=== PATIENT | female | born 1980 | race Caucasian/White ===

== ENCOUNTER → 2017-05-29 | Outpatient (CLI) | payer MEDICAID ==
[2017-05-30 08:19] LABS: ABSOLUTE EOSINOPHILS # (AUTO) 0.4 10^3/uL (0.0-0.6); ABSOLUTE LYMPHOCYTES (AUTO) 1.3 10^3/uL (0.5-4.7); ABSOLUTE MONOCYTES (AUTO) 0.4 10^3/uL (0.1-1.4); ABSOLUTE NEUT (AUTO) 4.1 10^3/uL (1.7-8.2); BASOPHILS % (AUTO) 0.7 % (0-2); EOSINOPHILS % (AUTO) 6.6 % (0-6); HEMATOCRIT 41.5 % (36.0-47.0); HEMOGLOBIN 13.5 g/dL (12.0-15.5); LYMPHOCYTES % (AUTO) 21.5 % (13-45); MEAN CORPUSCULAR HEMOGLOBIN 26.9 pg (27.0-33.4); MEAN CORPUSCULAR HGB CONC 32.5 g/dL (32.0-36.0); MEAN CORPUSCULAR VOLUME 83 fl (80-97); MONOCYTES % (AUTO) 5.9 % (3-13); RED BLOOD COUNT 5.02 10^6/uL (3.72-5.28); SEGMENTED NEUTROPHILS % (AUTO) 65.3 % (42-78); WHITE BLOOD COUNT 6.3 10^3/uL (4.0-10.5)
[2017-05-30 08:46] LABS: ALANINE AMINOTRANSFERASE 18 U/L (9-52); ALKALINE PHOSPHATASE 88 U/L (38-126); ANION GAP 11 (5-19); ASPARTATE AMINO TRANSFERASE 22 U/L (14-36); BILIRUBIN,DIRECT 0.3 mg/dL (0.0-0.4); BILIRUBIN,TOTAL 0.5 mg/dL (0.2-1.3); BLOOD UREA NITROGEN 27 mg/dL (7-20); CALCIUM 9.3 mg/dL (8.4-10.2); CARBON DIOXIDE 27 mmol/L (22-30); CHLORIDE 104 mmol/L (98-107); CHOLESTEROL 257.59 mg/dL (0-200); CREATININE RESULT 0.92 mg/dL (0.52-1.25); Direct HDL 52 mg/dL (>40); GLUCOSE 96 mg/dL (75-110); POTASSIUM 4.2 mmol/L (3.6-5.0); SODIUM 141.6 mmol/L (137-145); TOTAL PROTEIN 6.9 g/dL (6.3-8.2); TRIGLYCERIDES 85 mg/dL (<150)
[2017-05-30 09:00] LABS: DIRECT LDL 188 mg/dL (<100)
== END ==
LOC: OD 11:16
PROVIDERS: ATTEND Family Medicine
DX: G43.109 Migraine with aura, not intractable, without status migrainosus (principal); Q61.3 Polycystic kidney, unspecified; R89.4 Abnormal immunological findings in specimens from other organs, systems and tissues
CPT/HCPCS: 36415; 80053; 80061; 84443; 85025

== ENCOUNTER 2017-11-10 17:35 | Emergency (ER) | payer OTHER ==
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
[2017-11-10] MEDS ORDERED: OXYCODONE-ACETAMINOPHEN 5-325 MG TABLET PO ONE (21:27)
[2017-11-10 22:01] VITALS: BP 129/75
== END 2017-11-10 21:50 | disposition home or self-care (01) ==
LOC: ER 17:35
DX: G43.909 Migraine, unspecified, not intractable, without status migrainosus (principal); M62.830 Muscle spasm of back; Z90.710 Acquired absence of both cervix and uterus; Z88.6 Allergy status to analgesic agent
CPT/HCPCS: 72040; 72100; 99283

== ENCOUNTER 2018-02-25 17:00 | Emergency (ER) | payer OTHER ==
[2018-02-25] MEDS ORDERED: PENICILLIN G BENZATHINE 1.2 MILLION UNIT/2 ML DISP.SYRIN IM ONE (19:09)
[2018-02-25] MEDS ORDERED: DEXAMETHASONE 4 MG TABLET PO ONE (19:09)
--- NOTE | 2018-02-25 19:11 | ER Document Report ---
HPI - HPI Patient complains to provider of: Sore throat Onset: Yesterday Onset/Duration: Gradual Quality of pain: Achy Pain Level: 3 Context: Patient presents complaining of sore throat, body aches that started yesterday. Patient states his typical symptoms and presentation when she has strep and she suspects the same today. Associated Symptoms: Body/muscle aches, Sore throat. denies: Earache, Fever Exacerbated by: Denies Relieved by: Denies Similar symptoms previously: Yes Recently seen / treated by doctor: No - ROS ROS below otherwise negative: Yes Systems Reviewed and Negative: Yes All other systems reviewed and negative - EENT EENT: REPORTS: Sore Throat - RESPIRATORY Respiratory: DENIES: Coughing - GASTROINTESTINAL Gastrointestinal: DENIES: Nausea, Patient vomiting - REPRODUCTIVE Reproductive: DENIES: : - DERM Skin Color: Normal Skin Problems: None Past Medical History - General Information source: Patient - Social History Smoking Status: Never Smoker Frequency of alcohol use: None Drug Abuse: None Occupation: Childcare Lives with: Family Family History: Reviewed & Not Pertinent Patient has suicidal ideation: No Patient has homicidal ideation: No Neurological Medical History: Reports: Hx Migraine Renal/ Medical History: Reports: Other - Polycystic kidneys. Denies: Hx Peritoneal Dialysis. Comment Only: Hx Kidney Stones - polycystic kidneys GI Medical History: Reports: Hx Gastroesophageal Reflux Disease Past Surgical History: Reports: Hx Hysterectomy - Immunizations Hx Diphtheria, Pertussis, Tetanus Vaccination: Yes Vertical Provider Document - CONSTITUTIONAL Agree With Documented VS: Yes Exam Limitations: No Limitations General Appearance: WD/WN, No Apparent Distress - INFECTION CONTROL TRAVEL OUTSIDE OF THE [place] IN LAST 30 DAYS: No - HEENT HEENT: Atraumatic, Normocephalic, Pharyngeal Exudate, Pharyngeal Tenderness, Pharyngeal Erythema. negative: Tympanic Membrane Red, Tympanic Membrane Bulging - NECK Neck: Lymphadenopathy-Left, Lymphadenopathy-Right - RESPIRATORY Respiratory: Breath Sounds Normal, No Respiratory Distress, Chest Non-Tender - CARDIOVASCULAR Cardiovascular: Regular Rate, Regular Rhythm, No Murmur - BACK Back: Normal Inspection - MUSCULOSKELETAL/EXTREMETIES Musculoskeletal/Extremeties: MAEW - NEURO Level of Consciousness: Awake, Alert, Appropriate Motor/Sensory: No Motor Deficit - DERM Integumentary: Warm, Dry, No Rash Course - Re-evaluation Re-evalutation: 02/25/18 19:09 Patient presents with symptoms concerning for exudative tonsillitis. No concern for peritonsillar abscess, no potential airway compromise. Discussed worsening symptoms that patient should return immediately for. - Vital Signs Vital signs: Temp Pulse Resp BP Pulse Ox 98.7 F 91 14 128/74 H 98 02/25/18 17:25 02/25/18 17:25 02/25/18 17:25 02/25/18 17:25 02/25/18 17:25 Discharge - Discharge Clinical Impression: Tonsillitis Condition: Stable Disposition: HOME, SELF-CARE Instructions: Corticosteroid Medication ([facility]), Use of Cray-Wwh-Pslssam Ibuprofen ([facility]), Tonsillitis ([facility]) Additional Instructions: Return immediately for any new or worsening symptoms Followup with your primary care provider, call tomorrow to make a followup appointment Prescriptions: Naproxen [Naprosyn 250 Nmg Tablet] 1 tab PO BID #14 tablet Forms: Return to Work Referrals: [facility] [Provider Group] - Follow up as needed
[2018-02-25 19:39] VITALS: BP 123/86
== END 2018-02-25 19:39 | disposition home or self-care (01) ==
LOC: ER 17:00
DX: J03.90 Acute tonsillitis, unspecified (principal); M79.1 Myalgia
CPT/HCPCS: 99282; 96372; J0561

== ENCOUNTER 2018-06-08 11:33 | Emergency (ER) | payer SELFPAY ==
--- NOTE | 2018-06-08 11:41 | ER Document Report ---
HPI - HPI Patient complains to provider of: Pain left calf Onset: Other - 3 weeks Onset/Duration: Worse Pain Level: 1 Context: 38-year-old female complaining of left calf pain with bruising without injury and I am not. She has been watching it for 3 weeks it gets more painful when she walks and very tight. She also has noticed some enlarged engorged veins in that lower leg which she has never had before. No prolonged travel. No history of DVT or PE. No chest pain or shortness of breath. 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 - REPRODUCTIVE Reproductive: DENIES: : Past Medical History - General Information source: Patient - Social History Smoking Status: Never Smoker Frequency of alcohol use: None Drug Abuse: None Lives with: Family Family History: Reviewed & Not Pertinent Neurological Medical History: Reports: Hx Migraine Renal/ Medical History: Denies: Hx Peritoneal Dialysis. Comment Only: Hx Kidney Stones - polycystic kidneys GI Medical History: Reports: Hx Gastroesophageal Reflux Disease Past Surgical History: Reports: Hx Hysterectomy - Immunizations Hx Diphtheria, Pertussis, Tetanus Vaccination: Yes Vertical Provider Document - CONSTITUTIONAL Agree With Documented VS: Yes Exam Limitations: No Limitations - INFECTION CONTROL TRAVEL OUTSIDE OF THE [place] IN LAST 30 DAYS: No - MUSCULOSKELETAL/EXTREMETIES Musculoskeletal/Extremeties: MAEW, FROM, Tender, Eccymosis - mid medial left lower posterior leg, 4 cm stellate Which is fading to yellow in the center where there is a subq firm mass tender, veins of left lower leg more pronounced than the right lower leg. negative: Edema Notes: 2+ dp and femoral pulses - NEURO Level of Consciousness: Alert - DERM Integumentary: No Rash Course - Re-evaluation Re-evalutation: 06/08/18 Venous Doppler ultrasound negative per Dr. Quigley Discharge - Discharge Clinical Impression: left calf ecchymosis Condition: Good Disposition: HOME, SELF-CARE Instructions: Acetaminophen, Ibuprofen (General) ([facility]), Warm Packs ([facility]) Additional Instructions: warm compress See your doctor for follow-up You may be developing varicose veins the brusing should resolve in the next week Prescriptions: Ibuprofen [Motrin 800 mg Tablet] 800 mg PO Q8HP PRN #30 tablet PRN Reason: Forms: Return to Work
[2018-06-08 11:45] VITALS: BP 126/96
--- NOTE | 2018-06-09 07:49 | XCELERA REPORT ---
[address] [address] Lower Extremity Venous Evaluation Name: BYRON BROOKS Age: 38 yrs Gender: Female : 1980 Patient Status: Emergency Patient Location: ER Study Date: 06/08/2018 01:33 PM Procedure: Color flow and duplex imaging of the veins of the left lower extremity as well as the right Common Femoral vein. Reason For Study: swelling left leg Ordering Physician: SHAWN VAZQUEZ Performed By: [facility] Right Sided Venous Evaluation The right common femoral vein is fully compressible. Spontaneous and phasic flow is present in the right common femoral vein. Left Sided Venous Evaluation Normal vessel filling wall to wall, compression and augmentation as well as Colour flow down to the infrageniculate veins. Critical Findings Called in to the ER at about 1500. Interpretation Summary No duplex evidence of DVT or obstruction in the left lower extremity nor in the right Common Femoral vein. : SHAWN VAZQUEZ > Juan J Quigley
== END 2018-06-08 15:17 | disposition home or self-care (01) ==
LOC: ER 11:33
DX: R58 Hemorrhage, not elsewhere classified (principal); M79.605 Pain in left leg
CPT/HCPCS: 93971; 99284

== ENCOUNTER 2018-06-26 16:44 | Emergency (ER) | payer SELFPAY ==
[2018-06-26 16:49] VITALS: BP 139/91
[2018-06-26] MEDS ORDERED: METHYLPREDNISOLONE ACETATE INJ 80 MG/1 ML VIAL IM ONE (17:21)
[2018-06-26] MEDS ORDERED: BUPIVACAINE HCL 0.75% INJ/PF (7.5 MG/1 ML) 10 ML SDV INJ ONE (17:21)
[2018-06-26] MEDS ORDERED: PROCHLORPERAZINE MALEATE 10 MG TABLET PO ONE (17:36)
[2018-06-26] MEDS ORDERED: KETOROLAC TROMETHAMINE 60 MG/2 ML SDV IM ONE (17:36)
--- NOTE | 2018-06-26 17:40 | ER Document Report ---
ED Medical Screen (RME) - General TRAVEL OUTSIDE OF THE [place] IN LAST 30 DAYS: No - General Chief Complaint: Headache Stated Complaint: HEADACHE Time Seen by Provider: 06/26/18 17:15 Notes: 38 years old female who presents today with migraine type of headache for the last 3 days. In spite of taking her regular medications still having the headache. Described as frontal headache in her left neck region. Exacerbated by movement. No nausea vomiting. Has taken Dexedrine as well as Maxalt without help. She was given a trigger point injection on the left upper neck claims that did not help fully. ([place]) - Related Data Allergies/Adverse Reactions: acetaminophen [From Vicodin] Allergy (Verified 06/26/18 19:11) hydrocodone bitartrate [From Vicodin] Allergy (Verified 06/26/18 19:11) morphine [Morphine] Adverse Reaction (Verified 06/26/18 19:11) Past Medical History - Social History Chew tobacco use (# tins/day): No Frequency of alcohol use: None Drug Abuse: None Neurological Medical History: Reports: Hx Migraine Renal/ Medical History: Denies: Hx Peritoneal Dialysis. Comment Only: Hx Kidney Stones - polycystic kidneys GI Medical History: Reports: Hx Gastroesophageal Reflux Disease Past Surgical History: Reports: Hx Hysterectomy - Immunizations Hx Diphtheria, Pertussis, Tetanus Vaccination: Yes - Vital signs Vitals: Temp Pulse Resp BP Pulse Ox 98.6 F 76 16 139/91 H 95 06/26/18 16:48 06/26/18 16:48 06/26/18 16:48 06/26/18 16:48 06/26/18 16:48 - Vital Signs Vital signs: Temp Pulse Resp BP Pulse Ox 98.6 F 76 16 139/91 H 95 06/26/18 16:48 06/26/18 16:48 06/26/18 16:48 06/26/18 16:48 06/26/18 16:48 Procedures - Additional Procedures Trigger point Time performed: 17:40 Additional Procedures: Other - Additional Procedures Trigger point Notes: 06/26/18 17:40 Trigger point injection was given in the left upper cervical muscles under aseptic condition using sterile technique with 60 mg of, Depo-Medrol and 3 cc of Marcaine. Without any complications. ([place]) Doctor's Discharge - Discharge Clinical Impression: Migraine Qualifiers: Migraine type: unspecified Status migrainosus presence: without status migrainosus Intractability: not intractable Qualified Code(s): G43.909 - Migraine, unspecified, not intractable, without status migrainosus Condition: Stable Disposition: HOME, SELF-CARE Instructions: Migraine Headache ([facility]) Additional Instructions: Follow up with your physician tomorrow for further care or return to the ED IMMEDIATELY if symptoms worsen or new concerns occur. If you cannot afford to follow up with your primary care physician a list of low cost clinics have been provided at the end of your discharge papers as well. Forms: Return to Work
[2018-06-26] MEDS ORDERED: HALOPERIDOL 5 MG TABLET PO ONE (19:38)
[2018-06-26] MEDS ORDERED: DIPHENHYDRAMINE HCL 50 MG CAPSULE PO ONE (19:38)
--- NOTE | 2018-06-26 19:42 | ER Document Report ---
ED General - General Chief Complaint: Headache Stated Complaint: HEADACHE Time Seen by Provider: 06/26/18 17:15 Mode of Arrival: Ambulatory Information source: Patient Notes: 38-year-old female history of chronic migraines presents with complaints of migraine 3 day duration associated with nausea and vomiting. Patient notes she vomited on the first day since then has just been nauseous. She denies any fevers or chills notes this is similar to all her previous migraines. Denies any neurological deficits notes she has had an injection points in the past with some relief TRAVEL OUTSIDE OF THE [place] IN LAST 30 DAYS: No - HPI Onset: Other Onset/Duration: Persistent Quality of pain: Achy Severity: Mild Pain Level: 1 Associated symptoms: Headache, Nausea, Vomiting Exacerbated by: Denies Relieved by: Denies Similar symptoms previously: Yes Recently seen / treated by doctor: Yes - Related Data Allergies/Adverse Reactions: acetaminophen [From Vicodin] Allergy (Verified 06/26/18 19:11) hydrocodone bitartrate [From Vicodin] Allergy (Verified 06/26/18 19:11) morphine [Morphine] Adverse Reaction (Verified 06/26/18 19:11) Past Medical History - Social History Smoking Status: Never Smoker Cigarette use (# per day): No Chew tobacco use (# tins/day): No Smoking Education Provided: No Frequency of alcohol use: None Drug Abuse: None Family History: Reviewed & Not Pertinent Patient has suicidal ideation: No Patient has homicidal ideation: No Neurological Medical History: Reports: Hx Migraine Renal/ Medical History: Denies: Hx Peritoneal Dialysis. Comment Only: Hx Kidney Stones - polycystic kidneys GI Medical History: Reports: Hx Gastroesophageal Reflux Disease Past Surgical History: Reports: Hx Hysterectomy - Immunizations Hx Diphtheria, Pertussis, Tetanus Vaccination: Yes Review of Systems - Review of Systems Notes: REVIEW OF SYSTEMS: CONSTITUTIONAL : Denies fever, chills, or sweats. Denies recent illness. EENT: Denies eye, ear, throat, or mouth pain or symptoms. Denies nasal or sinus congestion or discharge. Denies throat, tongue, or mouth swelling or difficulty swallowing. CARDIOVASCULAR: Denies chest pain. Denies palpitations or racing or irregular heart beat. Denies ankle edema. RESPIRATORY: Denies cough, cold, or chest congestion. Denies shortness of breath, difficulty breathing, or wheezing. GASTROINTESTINAL: Admits nausea vomiting GENITOURINARY: Denies difficulty urinating, painful urination, burning, frequency, blood in urine, or discharge. FEMALE GENITOURINARY: Denies vaginal bleeding, heavy or abnormal periods, irregular periods. Denies vaginal discharge or odor. MUSCULOSKELETAL: Denies back or neck pain or stiffness. Denies joint pain or swelling. SKIN: Denies rash, lesions or sores. HEMATOLOGIC : Denies easy bruising or bleeding. LYMPHATIC: Denies swollen, enlarged glands. NEUROLOGICAL: Admits to headache PSYCHIATRIC: Denies anxiety or stress. Denies depression, suicidal ideation, or homicidal ideation. ALL OTHER SYSTEMS REVIEWED AND NEGATIVE. PHYSICAL EXAMINATION: GENERAL: Well-appearing, well-nourished and in no acute distress. HEAD: Atraumatic, normocephalic. EYES: Pupils equal round and reactive to light, extraocular movements intact, conjunctiva are normal. ENT: Nares patent, oropharynx clear without exudates. Moist mucous membranes. NECK: Normal range of motion, supple without lymphadenopathy LUNGS: Breath sounds clear to auscultation bilaterally and equal. No wheezes rales or rhonchi. HEART: Regular rate and rhythm without murmurs ABDOMEN: Soft, nontender, nondistended abdomen. No guarding, no rebound. No masses appreciated. Female : deferred Musculoskeletal: Normal range of motion, no pitting or edema. No cyanosis. NEUROLOGICAL: Cranial nerves grossly intact. Normal speech, normal gait. Normal sensory, motor exams PSYCH: Normal mood, normal affect. SKIN: Warm, Dry, normal turgor, no rashes or lesions noted. Dictation was performed using [employer] voice recognition software Physical Exam - Vital signs Vitals: Temp Pulse Resp BP Pulse Ox 98.6 F 76 16 139/91 H 95 06/26/18 16:48 06/26/18 16:48 06/26/18 16:48 06/26/18 16:48 06/26/18 16:48 Course - Re-evaluation Re-evalutation: 06/26/18 19:42 Patient's presentation most consistent with chronic migraine exacerbation, she will be treated symptomatically, she has already received injection of Sensorcaine by the triage physician 06/26/18 21:05 Patient states that her migraines a little better, however she believes that we are treating her as if she only has a minor headache yet she is received 6 separate medications, I explained to the patient that we would not be giving these medications if we are concerned that this was just a minor headache, the patient states she just wants to leave, at her request I will discharge her. Patient is insisting that she received 4 medications yet when I explained each one that was given to her she acknowledges that she has received them patient has been treated with multiple medications for migraine cocktails, she requests work note and I will provide this for her as well she has no life-threatening issues she looks well vital signs are stable and she is stable for discharge After performing a Medical Screening Examination, I estimate there is LOW risk for ACUTE GLAUCOMA, TEMPORAL ARTERITIS, MENINGITIS, INCRANIAL HEMORRHAGE, or ISCHEMIC STROKE thus I consider the discharge disposition reasonable. I have reevaluated this patient multiple times and no significant life threatening changes are noted. The patient and I have discussed the diagnosis and risks, and we agree with discharging home with close follow-up with the understanding that symptoms and presentations can change. We also discussed returning to the Emergency Department immediately if new or worsening symptoms occur. We have discussed the symptoms which are most concerning (e.g., changing or worsening symptoms, new numbness or weakness, vomiting, fever) that necessitate immediate return. 06/26/18 21:07 - Vital Signs Vital signs: Temp Pulse Resp BP Pulse Ox 98.6 F 76 16 139/91 H 95 06/26/18 16:48 06/26/18 16:48 06/26/18 16:48 06/26/18 16:48 06/26/18 16:48 Discharge - Discharge Clinical Impression: Migraine Qualifiers: Migraine type: unspecified Status migrainosus presence: without status migrainosus Intractability: not intractable Qualified Code(s): G43.909 - Migraine, unspecified, not intractable, without status migrainosus Condition: Stable Disposition: HOME, SELF-CARE Instructions: Migraine Headache ([facility]) Additional Instructions: Follow up with your physician tomorrow for further care or return to the ED IMMEDIATELY if symptoms worsen or new concerns occur. If you cannot afford to follow up with your primary care physician a list of low cost clinics have been provided at the end of your discharge papers as well.
== END 2018-06-26 21:25 | disposition home or self-care (01) ==
LOC: ER 16:44
DX: G43.909 Migraine, unspecified, not intractable, without status migrainosus (principal); R11.2 Nausea with vomiting, unspecified; Z88.6 Allergy status to analgesic agent; Z88.5 Allergy status to narcotic agent
CPT/HCPCS: 99283; 96372; J1885; S0183

== ENCOUNTER 2019-07-06 16:01 | Emergency (ER) | payer SELFPAY ==
[2019-07-06 16:14] VITALS: BP 135/84
[2019-07-06] MEDS ORDERED: LIDOCAINE 5% (700 MG) TRANSDERMAL ADH..PATCH TP ONE (16:23)
[2019-07-06] MEDS ORDERED: DEXAMETHASONE SOD PHOS INJ 10 MG/1 ML VIAL IM ONE (16:23)
--- NOTE | 2019-07-06 16:27 | ER Document Report ---
HPI - HPI Time Seen by Provider: 07/06/19 16:18 Pain Level: 5 Notes: Patient is a 39-year-old female with a history of chronic low back pain who presents complaining of acute on chronic left low back pain that radiates to the lateral side of her leg. Patient describes it as more of a dullness. 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 She still able to ambulate without difficulty otherwise. She is eating and drinking without difficulty. She is urinating normally and having normal bowel movements. Patient tried conservative measures at home with no relief. She does have a history of polycystic kidney disease and cannot take NSAIDs as well. She has not had any history of IV drug abuse, diabetes, or spinal abscess. Denies any headache, fever, URI, sore throat, chest pain, palpitations, syncope, cough, shortness of breath, wheeze, dyspnea, abdominal pain, nausea/vomiting/diarrhea, urinary retention, dysuria, hematuria, loss of control of bowel or bladder, numbness/tingling, saddle anesthesia, muscle paralysis/weakness, or rash. - ROS Systems Reviewed and Negative: Yes All other systems reviewed and negative - REPRODUCTIVE Reproductive: DENIES: : Past Medical History - Social History Smoking Status: Never Smoker Family History: Reviewed & Not Pertinent Neurological Medical History: Reports: Hx Migraine Renal/ Medical History: Denies: Hx Peritoneal Dialysis. Comment Only: Hx Kidney Stones - polycystic kidneys GI Medical History: Reports: Hx Gastroesophageal Reflux Disease Past Surgical History: Reports: Hx Hysterectomy - Immunizations Hx Diphtheria, Pertussis, Tetanus Vaccination: Yes Vertical Provider Document - CONSTITUTIONAL Agree With Documented VS: Yes Notes: PHYSICAL EXAMINATION: GENERAL: Well-appearing, well-nourished and in no acute distress. LUNGS: Breath sounds clear to auscultation bilaterally and equal. No wheezes rales or rhonchi. HEART: Regular rate and rhythm without murmurs, rubs, gallops. ABDOMEN: Soft, nontender, nondistended abdomen. No guarding, no rebound. Normal bowel sounds present. No CVA tenderness bilaterally. No pulsatile mass Musculoskeletal: LE's b/l: FROM to passive/active. Strength 5+/5. No deficits noted. No bony tenderness of extremities. Back: FROM to passive/active. Strength 5+/5. No vertebral point tenderness, stepoffs, or deformities. No other bony tenderness, erythema, swelling, or ecchymosis. SLR negative b/l. + Reproducible tenderness to the left L- paraspinal mm. Mild spasming. No SI jt tenderness. No foot drop Extremities: No cyanosis, clubbing, or edema b/l. Peripheral pulses 2+. Capillary refill less than 2 seconds. NEUROLOGICAL: Normal speech, normal gait. Normal sensory, motor exams. Reflexes 2+ b/l. PSYCH: Normal mood, normal affect. SKIN: Warm, Dry, normal turgor, no rashes or lesions noted. - INFECTION CONTROL TRAVEL OUTSIDE OF THE [place] IN LAST 30 DAYS: No Course - Re-evaluation Re-evalutation: 07/06/19 16:25 Patient is an afebrile, well-hydrated, 39-year-old female who presents to the ED with acute on chronic low back pain. Vitals are acceptable. PE is otherwise unremarkable for any focal neurological deficits. Patient was given Decadron and Lidoderm patch. She has no significant tachycardia, tachypnea, or hypoxia. She is nontoxic-appearing and is tolerating p.o. without difficulties. There are no signs of infection. No other red flag symptoms noted. No other labs or imaging warranted at this time based on H&P. Low suspicion for any meningitis, fracture, expanding/ruptured AAA, cauda equina syndrome, epidural mass lesion/abscess, herniated disc causing severe spinal stenosis, or other systemic infection at this time. Patient is aware that his condition can change from initial presentation and that he needs monitor symptoms closely for any acute changes. I will send her home with a prescription for Robaxin and Lidoderm patches. Conservative measures otherwise for symptoms. Recheck with your PCM in 3-5 days. Consider consult with orthopedic/physical therapy. Return to the ED with any worsening/concerning symptoms otherwise as reviewed discharge. Patient is in agreement. - Vital Signs Vital signs: Temp Pulse Resp BP Pulse Ox 98.4 F 70 16 135/84 H 98 07/06/19 16:13 07/06/19 16:13 07/06/19 16:13 07/06/19 16:13 07/06/19 16:13 Discharge - Discharge Clinical Impression: Low back pain radiating to left leg Condition: Stable Disposition: HOME, SELF-CARE Instructions: Low Back Pain ([facility]), Muscle Relaxers ([facility]) Additional Instructions: Rest, Ice Tylenol/ibuprofen as needed Light stretches daily Strength exercises as able Moist heat and massage may help F/u with your PCP in 3-5 days for a recheck Consider consult(s) with Orthopedics/physical therapy for ongoing/worsening symptoms Return to the ED with any worsening symptoms and/or development of fever, headache, chest pain, palpitations, syncope, shortness of breath, trouble breathing, abdominal pain, n/v/d, blood in stool/urine, loss of control of bowel/bladder, urinary retention, muscle weakness/paralysis, saddle anesthesia, numbness/tingling, or other worsening symptoms that are concerning to you. Prescriptions: Lidocaine [Lidoderm 5% (700 mg) Transdermal Patch] 1 patch TP DAILY #10 adh.. patch Methocarbamol [Robaxin] 500 mg PO TID PRN #12 tablet PRN Reason: Forms: Elevated Blood Pressure Referrals: [facility] [Provider Group] - Follow up as needed
== END 2019-07-06 16:40 | disposition home or self-care (01) ==
LOC: ER 16:01
DX: M54.5 Low back pain (principal); G89.29 Other chronic pain; R25.2 Cramp and spasm
CPT/HCPCS: 99283; 96374; J1100

== ENCOUNTER 2019-08-07 12:44 | Emergency (ER) | payer SELFPAY ==
[2019-08-07 12:52] VITALS: BP 127/86
== END 2019-08-07 14:25 | disposition left against medical advice (07) ==
LOC: ER 12:44
DX: Z53.21 Procedure and treatment not carried out due to patient leaving prior to being seen by health care provider (principal)

== ENCOUNTER 2020-02-22 10:45 | Emergency (ER) | payer SELFPAY ==
--- NOTE | 2020-02-22 10:58 | ER Document Report ---
HPI - HPI Time Seen by Provider: 02/22/20 10:53 Pain Level: Denies Context: Patient is a 39-year-old female who presents emergency department with a chief complaint of dark urine and urinary frequency. Patient states that she has history of kidney disease. Her symptoms started 2 days ago. Denies any dysuria. Patient was recently started on amoxicillin for strep pharyngitis. Denies any abdominal pain or back pain. - ROS Systems Reviewed and Negative: Yes All other systems reviewed and negative - CONSTITUTIONAL Constitutional: DENIES: Fever, Chills - URINARY Urinary: REPORTS: Urgency, Frequency - REPRODUCTIVE Reproductive: DENIES: : - MUSCULOSKELETAL Musculoskeletal: DENIES: Extremity pain Past Medical History - Social History Smoking Status: Never Smoker Frequency of alcohol use: None Drug Abuse: None Family History: Reviewed & Not Pertinent Patient has suicidal ideation: No Patient has homicidal ideation: No Neurological Medical History: Reports: Hx Migraine Renal/ Medical History: Denies: Hx Peritoneal Dialysis. Comment Only: Hx Kidney Stones - polycystic kidneys GI Medical History: Reports: Hx Gastroesophageal Reflux Disease Past Surgical History: Reports: Hx Hysterectomy - Immunizations Hx Diphtheria, Pertussis, Tetanus Vaccination: Yes Vertical Provider Document - CONSTITUTIONAL Agree With Documented VS: Yes Exam Limitations: No Limitations General Appearance: No Apparent Distress - INFECTION CONTROL TRAVEL OUTSIDE OF THE [place] IN LAST 30 DAYS: No - HEENT HEENT: Atraumatic, Normocephalic, PERRLA - NECK Neck: Normal Inspection - RESPIRATORY Respiratory: No Respiratory Distress - CARDIOVASCULAR Cardiovascular: Regular Rate, Regular Rhythm Pulses: Normal: Radial - GI/ABDOMEN Gastrointestinal: Abdomen Soft, Abdomen Non-Tender - BACK Back: negative: CVA Tenderness-Right, CVA Tenderness-Left - MUSCULOSKELETAL/EXTREMETIES Musculoskeletal/Extremeties: FROM - NEURO Level of Consciousness: Awake, Alert, Appropriate Motor/Sensory: No Motor Deficit, No Sensory Deficit - DERM Integumentary: Warm, Dry, No Rash Course - Re-evaluation Re-evalutation: 02/22/20 11:41 Urinalysis unremarkable. No leukocytes noted. Urine will be sent for culture. Patient will continue her amoxicillin. I have a very low suspicion for pyelonephritis, kidney stone, or any life-threatening etiology at this time. Follow-up precautions were given. Verbal discharge instructions were given to the patient. They verbalized understanding. They are stable for discharge. - Vital Signs Vital signs: Temp Pulse Resp BP Pulse Ox 98.1 F 72 14 155/93 H 98 02/22/20 10:48 02/22/20 10:48 02/22/20 10:48 02/22/20 10:48 02/22/20 10:48 Discharge - Discharge Clinical Impression: Urinary frequency, Urinary urgency Condition: Stable Disposition: HOME, SELF-CARE Additional Instructions: You were seen today in the emergency department for dark urine. Your urinalysis is normal. Your urine will be sent for culture since you are having symptoms. Please follow-up with 1 of the clinics below. Continue your amoxicillin. Forms: Return to Work Referrals: [facility] [Provider Group] - Follow up as needed [facility] [Provider Group] - Follow up as needed
[2020-02-22 11:25] LABS: APPEARANCE,URINE CLEAR; BILIRUBIN,URINE NEGATIVE (NEGATIVE); COLOR,URINE YELLOW; GLUCOSE, URINE NEGATIVE (NEGATIVE); KETONES,URINE NEGATIVE (NEGATIVE); LEUKOCYTE ESTERASE,URINE NEGATIVE (NEGATIVE); NITRITE,URINE NEGATIVE (NEGATIVE); PROTEIN,URINE NEGATIVE (NEGATIVE); URINE SPECIFIC GRAVITY 1.013; UROBILINOGEN,URINE NEGATIVE mg/dL (<2.0)
[2020-02-22 11:46] VITALS: BP 131/92
== END 2020-02-22 11:52 | disposition home or self-care (01) ==
LOC: ER 10:45
DX: R35.0 Frequency of micturition (principal); R39.15 Urgency of urination; R39.198 Other difficulties with micturition
CPT/HCPCS: 81001; 87086; 99283

== ENCOUNTER 2020-08-22 22:43 | Emergency (ER) | payer OTHER ==
[2020-08-22] MEDS ORDERED: IBUPROFEN 600 MG TABLET PO ONE (23:04)
[2020-08-22] MEDS ORDERED: OXYCODONE-ACETAMINOPHEN 5-325 MG TABLET PO ONE (23:04)
--- NOTE | 2020-08-22 23:07 | ER Document Report ---
ED Medical Screen (RME) - General Stated Complaint: RIGHT HAND INJURY Time Seen by Provider: 08/22/20 23:03 Mode of Arrival: Ambulatory Information source: Patient Notes: 40-year-old female accidentally stabbed her right palm with a pair of scissors. She states that the cut goes pretty deep. Feeling tingling in her fingers. Last tetanus is unknown. Physical exam General: Uncomfortable Musculoskeletal 2-1/2 cm laceration to the right palm I have greeted and performed a rapid initial assessment of this patient. A comprehensive ED assessment and evaluation of the patient, analysis of test results and completion of the medical decision making process will be conducted by additional ED providers. TRAVEL OUTSIDE OF THE [place] IN LAST 30 DAYS: No - Related Data Allergies/Adverse Reactions: acetaminophen [From Vicodin] Allergy (Verified 06/26/18 19:11) hydrocodone bitartrate [From Vicodin] Allergy (Verified 06/26/18 19:11) morphine [Morphine] Adverse Reaction (Verified 06/26/18 19:11) Past Medical History Neurological Medical History: Reports: Hx Migraine Renal/ Medical History: Denies: Hx Peritoneal Dialysis. Comment Only: Hx Kidney Stones - polycystic kidneys GI Medical History: Reports: Hx Gastroesophageal Reflux Disease Past Surgical History: Reports: Hx Hysterectomy - Immunizations Hx Diphtheria, Pertussis, Tetanus Vaccination: Yes
--- NOTE | 2020-08-22 23:45 | RADIOLOGY REPORT (SQ) ---
CLINICAL INDICATION: stabbed to palm by scissors. . TECHNIQUE: 3 view(s) were obtained of the right hand. COMPARISON: None. FINDINGS: No acute displaced fracture is identified of the hand. Alignment appears anatomic. Joint spaces are within normal limits for age. Surrounding soft tissues are unremarkable. No retained radiopaque foreign body. IMPRESSION: No evidence of acute bony injury to the hand.
[2020-08-23] MEDS ORDERED: DIPH/PERTUSS(ACELL)/TETANUS VAC/PF 0.5 ML SYR (>=10YO) IM ONE (02:18)
[2020-08-23] MEDS ORDERED: LIDOCAINE 1% INJ (10 MG/ML) 10 ML MDV INJ ONE (02:18)
--- NOTE | 2020-08-23 02:47 | ER Document Report ---
ED General - General Chief Complaint: Puncture Wound Stated Complaint: RIGHT HAND INJURY Time Seen by Provider: 08/22/20 23:03 Mode of Arrival: Ambulatory TRAVEL OUTSIDE OF THE [place] IN LAST 30 DAYS: No - HPI Onset: Just prior to arrival Onset/Duration: Sudden Quality of pain: Achy Severity: Mild Pain Level: 2 Context: 40 year old female at work a short time ago accidently stabbed right hand with a scissors and can not get the bleeding to stop. Unsure last tetanus. Healthy female that is right hand dominant. Exacerbated by: Movement Relieved by: Denies - Related Data Allergies/Adverse Reactions: acetaminophen [From Vicodin] Allergy (Verified 06/26/18 19:11) hydrocodone bitartrate [From Vicodin] Allergy (Verified 06/26/18 19:11) morphine [Morphine] Adverse Reaction (Verified 06/26/18 19:11) Past Medical History - General Information source: Patient - Social History Smoking Status: Never Smoker Chew tobacco use (# tins/day): No Frequency of alcohol use: None Drug Abuse: None Family History: Reviewed & Not Pertinent Patient has homicidal ideation: No Neurological Medical History: Reports: Hx Migraine Renal/ Medical History: Denies: Hx Peritoneal Dialysis. Comment Only: Hx Kidney Stones - polycystic kidneys GI Medical History: Reports: Hx Gastroesophageal Reflux Disease Past Surgical History: Reports: Hx Hysterectomy - Immunizations Hx Diphtheria, Pertussis, Tetanus Vaccination: Yes Review of Systems - Review of Systems Constitutional: No symptoms reported EENT: No symptoms reported Cardiovascular: No symptoms reported Respiratory: No symptoms reported Gastrointestinal: No symptoms reported Genitourinary: No symptoms reported Female Genitourinary: No symptoms reported Musculoskeletal: No symptoms reported Skin: See HPI, Other - laceration right hand Hematologic/Lymphatic: No symptoms reported Neurological/Psychological: No symptoms reported Physical Exam - Vital signs Vitals: Temp 98.2 F 08/22/20 22:59 Interpretation: Normal - General General appearance: Appears well, Alert - HEENT Head: Normocephalic, Atraumatic Eyes: Normal - Respiratory Respiratory status: No respiratory distress Breath sounds: Normal - Cardiovascular Rhythm: Regular Heart sounds: Normal auscultation Murmur: No - Abdominal Inspection: Normal Distension: No distension - Back Back: Normal - Extremities General upper extremity: Normal color, Normal temperature, Other. No: Normal inspection, Nontender, Normal ROM - Right hand with 2 cm laceration to right palm proximaly with bleeding controlled. General lower extremity: Normal inspection, Nontender, Normal color, Normal ROM, Normal temperature, Normal weight bearing. No: Adiel's sign - Neurological Neuro grossly intact: Yes Cognition: Normal Orientation: AAOx4 Armírez Coma Scale Eye Opening: Spontaneous Ramírez Coma Scale Verbal: Oriented Ramírez Coma Scale Motor: Obeys Commands [place] Coma Scale Total: 15 Speech: Normal Motor strength normal: LUE, RUE, LLE, RLE Sensory: Normal - Psychological Associated symptoms: Normal affect, Normal mood - Skin Skin Temperature: Warm Skin Moisture: Dry Skin Color: Normal Course - Re-evaluation Re-evalutation: 08/23/20 02:46 MDM 40 year old female with laceration to right hand. Tdap given and wound repaired. Tolerated well without apparent complications. - Vital Signs Vital signs: Temp Pulse Resp BP Pulse Ox 98.2 F 67 20 154/94 H 100 08/22/20 23:07 08/22/20 23:07 08/22/20 23:07 08/22/20 23:07 08/22/20 23:07 Procedures - Laceration/Wound Repair Right Hand Time completed: 02:45 Wound length (cm): 2 Wound's Depth, Shape: Superficial, Linear Anesthetic type: 1% Lidocaine Volume Anesthetic (mLs): 5 Wound explored: Clean, No foreign body removed Wound Debrided: Minimal Wound Repaired With: Sutures Suture Size/Type: 4:0 Number of Sutures: 3 Layer Closure?: No Post-procedure NV exam normal: Yes Complications: No Notes: 08/23/20 02:48 Closed right hand palmar surface without difficulty. Pt tolerated well without apparent complications. Discharge - Discharge Clinical Impression: Laceration Condition: Stable Disposition: HOME, SELF-CARE Instructions: Soap Cleansing ([facility]), Tetanus Immunization Given ([facility]), Laceration Care ([facility]), Family Physicians / Practices Additional Instructions: Keep wound clean and dry for 24 hours and then clean. Take tylenol or ibuprofen for pain. Return here for redness or drainage from the wound or increasing pain. Sutures out 08/28. No lifting greater than 5 pounds for 1 week with right hand and then resume regular work. Forms: Return to Work
[2020-08-23 03:09] VITALS: BP 148/78
== END 2020-08-23 03:06 | disposition home or self-care (01) ==
LOC: ER 22:43
DX: S61.411A Laceration without foreign body of right hand, initial encounter (principal); W26.8XXA Contact with other sharp object(s), not elsewhere classified, initial encounter; Y93.89 Activity, other specified; Z23 Encounter for immunization; Z88.8 Allergy status to other drugs, medicaments and biological substances; Z88.6 Allergy status to analgesic agent; Z88.5 Allergy status to narcotic agent
CPT/HCPCS: 90471; 90715; 99283

== ENCOUNTER 2020-08-28 20:05 | Emergency (ER) | payer OTHER ==
[2020-08-28] MEDS ORDERED: SULFAMETHOXAZOLE/TRIMETHOPRIM 800-160 MG TABLET PO ONE (21:44)
[2020-08-28] MEDS ORDERED: CEPHALEXIN 500 MG CAPSULE PO ONE (21:44)
--- NOTE | 2020-08-28 21:47 | ER Document Report ---
HPI - HPI Time Seen by Provider: 08/28/20 21:37 Pain Level: 3 Context: Patient is a 40-year-old female who presents emergency department with a chief complaint of right hand pain. Patient is right-handed. She excellently cut herself with some scissors last week. She had stitches placed multiple stitches coming out. She states that she noticed some blood was coming out of her wound today. Denies any fever, body aches, or chills. - ROS Systems Reviewed and Negative: Yes All other systems reviewed and negative - CONSTITUTIONAL Constitutional: DENIES: Fever, Chills - REPRODUCTIVE Reproductive: DENIES: : - MUSCULOSKELETAL Musculoskeletal: REPORTS: Extremity pain - Right hand. DENIES: Swelling - DERM Skin Color: Normal Skin Problems: Laceration - Right hand about 2 cm, with good approximation. Past Medical History - General Information source: Patient - Social History Smoking Status: Never Smoker Family History: Reviewed & Not Pertinent Neurological Medical History: Reports: Hx Migraine Renal/ Medical History: Denies: Hx Peritoneal Dialysis. Comment Only: Hx Kidney Stones - polycystic kidneys GI Medical History: Reports: Hx Gastroesophageal Reflux Disease Past Surgical History: Reports: Hx Abdominal Surgery, Hx Hysterectomy - Immunizations Hx Diphtheria, Pertussis, Tetanus Vaccination: Yes Vertical Provider Document - CONSTITUTIONAL Agree With Documented VS: Yes Exam Limitations: No Limitations General Appearance: No Apparent Distress - INFECTION CONTROL TRAVEL OUTSIDE OF THE [place] IN LAST 30 DAYS: No - HEENT HEENT: Atraumatic, Normocephalic, PERRLA - NECK Neck: Normal Inspection - RESPIRATORY Respiratory: No Respiratory Distress - CARDIOVASCULAR Cardiovascular: Regular Rate, Regular Rhythm Pulses: Normal: Dorsalis pedis - MUSCULOSKELETAL/EXTREMETIES Musculoskeletal/Extremeties: FROM - NEURO Level of Consciousness: Awake, Alert, Appropriate Motor/Sensory: No Motor Deficit, No Sensory Deficit - DERM Integumentary: Warm, Dry, Laceration - Healing to right palm Course - Re-evaluation Re-evalutation: 08/28/20 21:52 Patient's laceration appears as if it is healing appropriately. Due to the patient stating that she had pus to the area, will place her on Bactrim and Keflex. There is a small amount of erythema noted to the area. She is to follow-up with her primary care provider. No evidence of necrotizing fasciitis. Follow-up precautions were given. Verbal discharge instructions were given to the patient. They verbalized understanding. They are stable for discharge. - Vital Signs Vital signs: Temp Pulse Resp BP Pulse Ox 98.3 F 75 18 128/92 H 98 08/28/20 20:34 08/28/20 20:34 08/28/20 20:34 08/28/20 20:34 08/28/20 20:34 Discharge - Discharge Clinical Impression: Laceration Condition: Stable Disposition: HOME, SELF-CARE Additional Instructions: You were seen today in the emergency department for reevaluation of your on your hand. Please take the antibiotics as prescribed. Follow-up with your primary care provider or [employer] regards to this visit. Turn if your hand is not better in the next 3 days. Prescriptions: Sulfamethoxazole/Trimethoprim [Bactrim Ds Tablet] 1 each PO BID 7 Days #14 tablet Cephalexin Monohydrate [Keflex 500 mg Capsule] 500 mg PO Q6H 7 Days #28 capsule Forms: Return to Work
[2020-08-28 21:57] VITALS: BP 145/89
== END 2020-08-28 21:55 | disposition home or self-care (01) ==
LOC: ER 20:05
DX: S61.411A Laceration without foreign body of right hand, initial encounter (principal); W26.8XXA Contact with other sharp object(s), not elsewhere classified, initial encounter
CPT/HCPCS: 99283

== ENCOUNTER 2020-12-12 16:15 | Emergency (ER) | payer SELFPAY ==
--- NOTE | 2020-12-12 16:46 | ER Document Report ---
ED General - General Chief Complaint: Back Pain Stated Complaint: BACK PAIN TRAVEL OUTSIDE OF THE [place] IN LAST 30 DAYS: No - HPI Notes: Chief Complaint: right back pain Historian: History obtained from patient HPI: This is a 40-year-old female complaining of right lower back pain since Friday. Patient says she was in the shower and raise her right leg to shave it and had immediate right low back pain. Denies saddle anesthesia, incontinence, lower extremity weakness or numbness. Patient is ambulatory. Pain is worse with range of motion of her low back. Says if she uses her hand to hold pressure against a specific area on her back it helps the pain when she is trying to bend or move. No radiation of pain. Denies dysuria, hematuria, vaginal discharge, abdominal pain, fever/chills, nausea vomiting. No prior back surgeries. Has been taking Motrin and using TENS units without relief. ROS: Constitutional: no fevers. HEENT: no HUBER, sore throat, or vision changes. CV: no chest pain or palpitations. Resp: no cough or SOB. GI: no abdominal pain, or n/v/d. : no dysuria, hematuria, or incont. MSK: right lower back pain. Skin: no rashes or itching. Neuro: no seizures, weakness, numbness, or confusion. Hematological: no ecchymosis or easy bleeding. Endocrine: no polyuria/polydipsia, no heat/cold intolerance. Psych: no SI/HI, AH/VH or memory loss. PMHx: Reviewed and agree as charted by RN. PSHx: Reviewed and agree as charted by RN. SOCHx: Reviewed and agree as charted by RN. FHX: No significant familial comorbid conditions directly related to patient complaint Current Medications: Reviewed and agree with the patient medications as charted by the RN. Allergies: Reviewed and agree with the listed allergies as charted by the RN Physical Exam: Vitals: Reviewed in chart as documented by RN. General: Alert and in NAD. Head: Normocephalic; atraumatic Eyes: PERRLA, Conjunctivae clear sclerae non-icteric bilat ENT: no soft palate swelling or uvular deviation Neck: trachea midline, no unilateral swelling/tenderness/lymphadenopathy CV: RRR, no M/R/G; symmetric distal pulses Resp: respirations even and unlabored, CTA bilat. GI: abd soft and nondistended. NTTP. normal BS. no masses/HSM. no CVAT bilat MSK: lumbar- no midline tenderness or deformity. FROM lf L spine. tender to right SI joint. SLR neg bilat. Strength 5/5 and equal to BLE. no saddle anesthesia. sensation intact to BLE. pedal pulses 2+ to BLE. cap refill <3 sec Skin: warm, moist, good turgor. no rash/lesions Neuro: Alert and oriented X 4. following CN 2-12 intact. no unilateral weakness/numbness Psych: No SI/HI or AH/VH. Medical Decision-Making: differential: sacroilitis, disc herniation, lumbar strain, sciatica, DDD, kidney stone, - Related Data Allergies/Adverse Reactions: acetaminophen [From Vicodin] Allergy (Verified 06/26/18 19:11) hydrocodone bitartrate [From Vicodin] Allergy (Verified 06/26/18 19:11) morphine [Morphine] Adverse Reaction (Verified 06/26/18 19:11) Past Medical History - Social History Smoking Status: Unknown if Ever Smoked Family History: Reviewed & Not Pertinent Neurological Medical History: Reports: Hx Migraine Renal/ Medical History: Denies: Hx Peritoneal Dialysis. Comment Only: Hx Kidney Stones - polycystic kidneys GI Medical History: Reports: Hx Gastroesophageal Reflux Disease Past Surgical History: Reports: Hx Abdominal Surgery, Hx Hysterectomy - Immunizations Hx Diphtheria, Pertussis, Tetanus Vaccination: Yes Physical Exam - Vital signs Vitals: Temp Pulse Resp BP Pulse Ox 98.1 F 91 20 120/88 H 99 12/12/20 16:12/12/20 16:12/12/20 16:12/12/20 16:12/12/20 16:21 Course - Vital Signs Vital signs: Temp Pulse Resp BP Pulse Ox 98.1 F 91 20 120/88 H 99 12/12/20 16:12/12/20 16:12/12/20 16:12/12/20 16:12/12/20 16:21 - Laboratory Results Critical Laboratory Results Reviewed: No Critical Results - Radiology Results Critical Radiology Results Reviewed: No Critical Results Discharge - Discharge Clinical Impression: Acute right-sided back pain Qualifiers: Back pain location: low back pain Sciatica presence: without sciatica Qualified Code(s): M54.5 - Low back pain Condition: Stable Disposition: HOME, SELF-CARE Instructions: Low Back Pain ([facility]) Additional Instructions: no driving on pain medications. take medications as prescribed. follow up with your doctor in 2-3 days. return to the ER if your condition worsens. Prescriptions: Oxycodone HCl/Acetaminophen [Percocet 5-325 mg Tablet] 1 tab PO Q6HP PRN #10 tablet PRN Reason: Prednisone [Deltasone 20 mg Tablet] 3 tab PO DAILY 5 Days #15 tablet Cyclobenzaprine HCl [Flexeril 10 mg Tablet] 10 mg PO BIDP PRN #15 tab PRN Reason: Forms: Return to Work
[2020-12-12 17:02] VITALS: BP 120/88
== END 2020-12-12 17:00 | disposition home or self-care (01) ==
LOC: ER 16:15
DX: M54.5 Low back pain (principal); K21.9 Gastro-esophageal reflux disease without esophagitis; Z79.899 Other long term (current) drug therapy; Z88.8 Allergy status to other drugs, medicaments and biological substances; Z88.6 Allergy status to analgesic agent; Z88.5 Allergy status to narcotic agent
CPT/HCPCS: 99284